=== PATIENT | male | born 1945 | race Caucasian/White ===

== ENCOUNTER → 2018-04-03 | Outpatient (CLI) | payer MEDICARE, OTHER ==
[~2018-04-03] MED LIST: FENTANYL CITRATE/PF 100MCG/2 ML INJ ONE; GADOBENATE DIMEGLUMINE 1 ML IV ONE; HEPARIN SOD/SOD CHLORIDE 2,000 ML ONE; IOPAMIDOL 370 MG/ML 200 ML INFUS..BTL INJ ONE; MIDAZOLAM HCL 2 MG/2 ML VIAL ONE; SODIUM CHLORIDE 0.9% 1000ML 1,000 ML ONE
[2018-04-03 11:29] LABS: CREATININE, SERUM 1.46 mg/dL (0.72-1.25)
--- NOTE | 2018-04-03 15:13 | Diagnostic Imaging Report ---
MRI NECK WOW HISTORY: Squamous cell carcinoma COMPARISON: None. TECHNIQUE: Multiplanar, multisequence MRI examination of the neck was performed before and after the administration of intravenous, gadolinium-based contrast. 20 mL of MultiHance were administered. Motion and noise artifacts obscure some details. DISCUSSION: The visualized upper aerodigestive tract is grossly unremarkable. No significant cervical adenopathy is seen. The thyroid gland is grossly unremarkable. The submandibular and parotid glands are grossly unremarkable. There is nonspecific T2 hyperintensity in the left vertebral artery V2 segment. The major cervical vessels are otherwise grossly unremarkable. The scouring train operator, parapharyngeal, posterior cervical, and perivertebral spaces are grossly unremarkable. Focal T2 hyperintensity is partially visualized in the posterior left temporal lobe. Otherwise, the visualized intracranial compartment and orbits are grossly unremarkable. The paranasal sinuses are clear. Mild to moderate multilevel disc degeneration is most prominent at C5-C6. Multilevel degenerative/congenital canal stenoses is present - moderate at C5-C6 and C6-C7. No suspicious marrow signal abnormality is seen. The visualized upper lungs are grossly unremarkable. IMPRESSION: 1. The visualized upper aerodigestive tract is grossly unremarkable. 2. No significant cervical adenopathy is seen. 3. Nonspecific T2 hyperintensity in the left vertebral artery V2 segment can be further evaluated with CTA. 4. Partially visualized T2 hyperintensity in the left posterior temporal lobe is likely due to encephalomalacia. This can be correlated with brain MRI. Signed by: Dr. Shane Mckeon M.D. on 04/03/2018 3:10 PM
== END ==
LOC: MRI 10:43
PROVIDERS: ATTEND Dermatology
DX: C44.320 Squamous cell carcinoma of skin of unspecified parts of face (principal); Z94.0 Kidney transplant status
CPT/HCPCS: 36415; 70543; 82565; 84520; A9577; J2250; J7030; Q9967